=== PATIENT | male | born 1965 | race Caucasian/White ===

== ENCOUNTER → 2017-04-04 | Emergency (ER) | payer OTHER ==
[~2017-04-04] VITALS: Ht 177.8 cm; Wt 81.6 kg
[~2017-04-04] MED LIST: VASOTEC5 MG
== END | disposition home or self-care (01) ==
LOC: ER 11:21
DX: S52.532A Colles' fracture of left radius, initial encounter for closed fracture (principal); W18.39XA Other fall on same level, initial encounter; Y93.89 Activity, other specified; Y92.488 Other paved roadways as the place of occurrence of the external cause; Y99.8 Other external cause status